=== PATIENT | male | born 1980 | race African-American/Black ===

== ENCOUNTER 2023-05-05 22:53 | Emergency (ER) | payer OTHER ==
[2023-05-05 23:01] VITALS: BP 124/75; PULSE 85; RESP 18; TEMP 98.4; BMI 37.6
[2023-05-06] MEDS ORDERED: SULFAMETHOXAZOLE/TRIMETHOPRIM 800MG/160MG D.S. TABLET PO ONE (01:46)
[2023-05-06] MEDS ORDERED: DIPHTH,PERTUSS(ACELL),TET 0.5 ML DISP.SYRIN IM ONE ×2 (01:53→01:57)
[2023-05-06] MEDS ORDERED: SULFAMETHOXAZOLE/TRIMETHOPRIM 800MG/160MG D.S. TABLET ONE (01:54)
== END 2023-05-06 02:09 | disposition home or self-care (01) ==
LOC: JER 22:53
PROC: 3E0234Z Introduction of Serum, Toxoid and Vaccine into Muscle, Percutaneous Approach (ICD-10-PCS; principal; 2023-05-06)
DX: S61.206A Unspecified open wound of right little finger without damage to nail, initial encounter (principal); W27.4XXA Contact with kitchen utensil, initial encounter; Y92.000 Kitchen of unspecified non-institutional (private) residence as the place of occurrence of the external cause; Y99.0 Civilian activity done for income or pay
CPT/HCPCS: 73130-TC-RT-FY; 90471; 90715; 99283-25